=== PATIENT | female | born 1995 | race Caucasian/White ===

== ENCOUNTER 2016-08-14 08:29 | Emergency (ER) | payer OTHER ==
[2016-08-14] MEDS ORDERED: methylPREDNISolone SOD SUCC 125 MG/2 ML VIAL IVP ONE (08:58)
[2016-08-14] MEDS ORDERED: FAMOTIDINE 20 MG/2 ML SDV IVP ONE (08:58)
--- NOTE | 2016-08-14 09:00 | EDPHY ---
H & P Time Seen by Provider: 08/14/16 08:36 HPI/ROS: This is a 21-year-old female presenting to the emergency department complaining of hives and itching skin. Patient states she was in [place] she noted rash and hives onset night not sure what may have caused it. Patient states she started taking low-dose prednisone 20 mg at that time without resolved, patient states she was seen in urgent care when she got home. States she was told to increase her prednisone started taking 50 mg on Monday night and Monday with intermittent Benadryl. She reports symptoms have not resolved , still not sure with the cause. Denies any shortness of breath or chest pain. Her boyfriend did say he had something similar a couple of days after they got back from [place] but his symptoms had resolved. REVIEW OF SYSTEMS: Constitutional: No fever or chills, normal PO intake ENT: No sore throat Respiratory: No shortness of breath or wheezing Cardiac: No chest pain Gastrointestinal: No nausea vomiting Skin: Positive rash and hives Neurological: No headache or dizziness Smoking Status: Never smoked Physical Exam: CONSTITUTIONAL: patient appeared well nourished, non-ill appearing and normally developed. No acute distress. Vital signs as documented. HEENT: Normocephalic atraumatic. PERRLA. Oropharynx normal NECK: Supple, . FROM without pain RESP: Non-labored resp effort, airway patent, CTAB CARDIAC: RRR w/o murmur, claire. Normal S1/S2 NEURO: AAOx3 SKIN: Diffuse hives noted throughout trunk/upper extremities/lower extremities. some excoriations noted to lower extremities LYMPH: No lymphadenopathy PSYCH: Normal affect, calm, no distress Constitutional: Initial Vital Signs Temperature (C) 36.4 C 08/14/16 08:32 Heart Rate 80 08/14/16 08:32 Respiratory Rate 20 08/14/16 08:32 Blood Pressure 135/87 H 08/14/16 08:32 O2 Sat (%) 100 08/14/16 08:32 O2 Delivery Mode Room Air Allergies/Adverse Reactions: No Known Allergies Allergy (Unverified 08/14/16 08:31) Home Medications: Medication Instructions Recorded BENADRYL 08/14/16 Prednisone 08/14/16 predniSONE 50 mg PO DAILY #5 tablet 04/02/17 Medical Decision Making ED Course/Re-evaluation: Discussed plan with patient. IV Solu-Medrol, Pepcid and Benadryl. 1020: Re-evaluation, patient states doing better decrease in skin irritations skin itching. Airway patent not in any distress no shortness of breath. Discharge home---> stable, discussed discharge instructions with patient Differential Diagnosis: Differential diagnosis considered but not limited to anaphylaxis, contact dermatitis papular uticaria - Data Points Medications Given: Discontinued Medications Diphenhydramine HCl (Benadryl Injection) 25 mg IVP EDNOW ONE Stop: 08/14/16 08:59 Last Admin: 08/14/16 09:25 Dose: 25 mg Famotidine (Pepcid) 20 mg IVP EDNOW ONE Stop: 08/14/16 08:59 Last Admin: 08/14/16 09:25 Dose: 20 mg Methylprednisolone Sodium Succinate (Solu-Medrol) 125 mg IVP EDNOW ONE Stop: 08/14/16 08:59 Last Admin: 08/14/16 09:25 Dose: 125 mg Departure - Departure Disposition: Home, Routine, Self-Care Clinical Impression: Hives of unknown origin Allergic reaction Qualifiers: Encounter type: initial encounter Qualified Code(s): T78.40XA - Allergy, unspecified, initial encounter Condition: Good Instructions: Urticaria (ED), Cold Compress or Soak (ED) Additional Instructions: 1. Take prednisone as directed, take Benadryl 25-50 mg every 6-8 hours as needed, take Pepcid(or generic)this is a histamine saeed 40 mg daily for the next 5 days 2. No body wash, lotion that contain any perfume or dyes 3. I would recommend washing all that spreads clothing with a laundry detergent that contains no perfumes or dyes 4. If symptoms do not resolve you may need to follow up with Dermatology. Follow up with your primary care provider this week Referrals: SHEETS,ELENITA [Other] - As per Instructions Luigi Burger MD [Medical Doctor] - As per Instructions Prescriptions: predniSONE 50 mg PO DAILY #5 tablet
[2016-08-14 10:44] VITALS: BP 117/76; PULSE 81; RESP 17; TEMP 98.1; O2SAT 95
== END 2016-08-14 10:43 | disposition home or self-care (01) ==
DX: L50.0 Allergic urticaria (principal)
CPT/HCPCS: 96374; J1200